=== PATIENT | female | born 1955 | race Caucasian/White ===

== ENCOUNTER 2020-07-01 08:00 | Inpatient (IN) | payer MEDICARE, OTHER ==
[2020-07-01] MEDS ORDERED: SITA1TAB6 PO (09:03)
[2020-07-01] MEDS ORDERED: ESCI20TA PO (09:03)
[2020-07-01] MEDS ORDERED: GLIM4TAB37 PO (09:03)
[2020-07-01] MEDS ORDERED: ATOR40TA PO (09:03)
[2020-07-01] MEDS ORDERED: LOSA100T31 PO (09:03)
[2020-07-01] MEDS ORDERED: EMPA25TA PO (09:03)
[2020-07-01] MEDS ORDERED: ERGO500014 PO (09:03)
[2020-07-01] MEDS ORDERED: HYDR-3980 PO (09:03)
[2020-07-01] MEDS ORDERED: GABA300C PO (09:03)
[2020-07-01] MEDS ORDERED: ANESTHESIA TRAY IN PYXIS 1 EA TRAY MC ONE (09:15)
[2020-07-01] MEDS ORDERED: LIDOCAINE 1% INJ 50 ML MDV IJ ONE (09:15)
[2020-07-01] MEDS ORDERED: methylPREDNISolone ACETATE 80 MG/ML VIAL ONE (09:16)
[2020-07-01] MEDS ORDERED: CLINDAMYCIN 900 MG/6 ML VIAL ONE (09:50)
[2020-07-01] MEDS ORDERED: HYDROMORPHONE INJ 2 MG/ML DISP.SYRIN ONE (11:00)
[2020-07-01] MEDS ORDERED: HYDROMORPHONE 1 MG/1 ML DISP.SYRIN ONE (11:26)
[2020-07-01] MEDS ORDERED: HYDROCODONE/APAP 5/325MG TABLET PO PRN ×2 (12:30→13:00)
[2020-07-01] MEDS ORDERED: DESFLURANE 240 ML BOTTLE IH ONE (12:49)
== END 2020-07-01 13:35 | disposition home or self-care (01) | DRG 489 ==
LOC: DS 08:00 → MED 08:02
PROVIDERS: ADMIT Specialist; ATTEND Specialist
PROC: 0SBC4ZZ Excision of Right Knee Joint, Percutaneous Endoscopic Approach (ICD-10-PCS; principal; 2020-07-01)
PROC: 0SBC4ZZ Excision of Right Knee Joint, Percutaneous Endoscopic Approach (ICD-10-PCS; 2020-07-01)
DX: S83.241A Other tear of medial meniscus, current injury, right knee, initial encounter (principal); X58.XXXA Exposure to other specified factors, initial encounter; Y92.9 Unspecified place or not applicable; S83.281A Other tear of lateral meniscus, current injury, right knee, initial encounter
CPT/HCPCS: 87081-TC; A4217; A6253; G0378; J1040; J1100; J1170; J1885; J2405; J2704; J3490